=== PATIENT | male | born 1995 | race Caucasian/White ===

== ENCOUNTER → 2020-10-22 | Outpatient (CLI) | payer BC ==
--- NOTE | 2020-10-22 09:50 | REP ---
INDICATION: NAUSEA WITH VOMITING, UNSPECIFIED COMPARISON: None. TECHNIQUE: Real time link scale ultrasound examination using curved array transducer. FINDINGS: Liver is normal in contour, size, and echogenicity without focal hepatic lesions identified. Pancreas is incompletely evaluated due to interposed bowel gas. The gallbladder is normal and without gallstones, wall thickening, or pericholecystic fluid. No biliary ductal dilatation is appreciated and the common bile duct measures 3.0 mm diameter. Right kidney is normal in reniform shape without hydronephrosis and measures 12.9 x 5.7 x 6.8 cm. No ascites in the visualized right upper quadrant. IMPRESSION: Normal limited right upper quadrant ultrasound <Electronically signed by John Watts > 10/22/20 [id number]
== END ==
LOC: M RAD 08:50 → EDBD 09:00
PROVIDERS: ATTEND Nurse Practitioner Family
DX: R11.2 Nausea with vomiting, unspecified (principal); K58.9 Irritable bowel syndrome, unspecified; R10.84 Generalized abdominal pain; R10.11 Right upper quadrant pain; R12 Heartburn; R63.4 Abnormal weight loss